=== PATIENT | male | born 1980 | race Caucasian/White ===

== ENCOUNTER 2016-06-14 09:27 | Emergency (ER) | payer SELFPAY ==
[2016-06-14 09:37] VITALS: BMI 23.8
[2016-06-14 10:05] LABS: LEUKOCYTES/URINE NEG (NEGATIVE); NITRITE/URINE NEG (NEGATIVE); RBC/URINE 0-2 (0-2); URINE OCCULT BLOOD NEG (NEG/TRACE); WBC/URINE 0-2 (0-2)
[2016-06-14] MEDS ORDERED: SODIUM CHLORIDE 0.9% 3 ML FLUSH FLUSH PRN (10:10)
[2016-06-14 10:11] VITALS: TEMP 98.4
[2016-06-14] MEDS ORDERED: ONDANSETRON HCL 4 MG/2 ML VIAL IV ONE (10:13)
[2016-06-14] MEDS ORDERED: HYDROmorphone 1 MG INJECTION IV ONE ×2 (10:13→11:32)
--- NOTE | 2016-06-14 10:17 | EDPRACDOC ---
- General Information Chief Complaint: Abdominal Pain Stated Complaint: ABD PAIN/ VOMITING Time Seen by Provider: 06/14/16 09:43 Information Source: Family Mode Of Arrival: Car Home Medications: Home Medications Atorvastatin Calcium [Lipitor] 10 mg PO HS 07/11/14 Levofloxacin [Levaquin] 750 mg PO DAILY #10 tab 06/14/16 Metronidazole [Flagyl] 500 mg PO BID #28 tab 06/14/16 Oxycodone HCl/Acetaminophen [Percocet 5-325 mg Tablet] 1 - 2 each PO Q4-6H #20 tablet 06/14/16 Promethazine [Phenergan] 25 mg PO Q8H PRN 06/14/16 Promethazine [Phenergan] 25 mg PO Q8H PRN #20 tab 06/14/16 Ranitidine HCl [Acid Manager Motor] 75 mg PO DAILY 06/14/16 Allergies/Adverse Reactions: Allergies Allergy/AdvReac Type Severity Reaction Status Date / Time hydrocodone Allergy Itching Verified 06/14/16 09:35 - History of Present Illness Onset: 4 days HPI: PT STATES HAS BEEN HAVING RLQ ABD PAIN FOR SEVERAL DAYS THEN WENT AWAY FOR APPROX 1 DAY THEN CAME BACK AND IS NOW DIFFUSE PAIN AND IS WORSE. PT STATES ABD FEELS TIGHT. NO N/V/D OR HEMATURIA AT THIS TIME. Pain Location: Reports: Diffuse Pain Context: Reports: Spontaneous Pain Severity: Severe Pain Quality: Reports: Aching, Cramping, Sharp Pain Radiation: Reports: Other (PELVIS) Modifying Factors: improves with: Position, Movement Oral Intake: Decreased Urinary Output: Normal ED Past Medical History - History Reviewed Yes Nurses notes reviewed and agree except as marked Travel Outside of [place] in the Last 3 Months?: No - Patient Medical History Cardiac History: Reports: Hypercholesterolemia GI/ History: Reports: Gastroesophageal Reflux Psychological History: Denies: Depression - Social Medical History Smoking Status: Heavy tobacco smoker (5 or more cigarettes/day or daily pipe/ cigar) ETOH: None Substance Abuse: None Lives With: Spouse Lives In: Home EDM Review of Systems - Review of Systems ROS Negative Except as Marked: Yes All systems reviewed and were negative except as marked Constitutional: No Symptoms Reported. negative: Fever, Chills, Weakness, Fatigue, Loss of Appetite Eyes: No Symptoms Reported. negative: Redness, Blurred Vision, Double Vision, Discharge, Pain, Light Sensitive, Photophobia Ears: No Symptoms Reported. negative: Pain, Hearing Loss, Drainage, Ear Pulling Throat: No Symptoms Reported. negative: Pain, Swelling Nose: No Symptoms Reported. negative: Congestion, Bleeding, Discharge, Injection, Swelling, Deformity, Ecchymosis, Tender, Abrasion, Laceration Mouth: No Symptoms Reported. negative: Pain, Drooling Respiratory: No Symptoms Reported. negative: Cough, Brassy Cough, Barky Cough, Shortness of Breath, Wheezing, Hemoptysis Cardiovascular: No Symptoms Reported. negative: Chest Pain, Palpitations, Syncope, Edema, Orthopnea, PND, Skin Mottling, Cyanosis Gastrointestinal: Pain (DIFFUSE). negative: Constipation, Diarrhea, Formula Intolerance, Melena, Nausea, Vomiting Genitourinary: No Symptoms Reported. negative: Dysuria, Hematuria, Frequency, Discharge, Bleeding, Testicular Pain, Neurological: No Symptoms Reported. negative: Headache, Dizziness, Seizure, Numbness, Weakness, Speech Difficulty, Gait Difficulty Musculoskeletal: No Symptoms Reported. negative: Neck, Chestwall, Ribs, Back, Shoulder, Arm, Elbow, Forearm, Wrist, Hand, Pelvis, Hip, Femur, Knee, Leg, Ankle , Foot Integumentary: No Symptoms Reported. negative: Itching, Rash, Bruising, Wound Allergic/Immunologic: No Symptoms Reported. negative: Hives, Itching Hematologic: No Symptoms Reported. negative: Lymphadenopathy, Easy Bruising, Easy Bleeding Endocrine: No Symptoms Reported. negative: Weight Gain, Weight Loss Psychiatric: No Symptoms Reported. negative: Anxiety, Depression, Hallucinations, Insomnia, Suicidal - Physical Exam Constitutional: Alert (Awake), No apparent distress Oriented to: Time, Person, Place Last recorded Vital Signs: Last Vital Signs Temp 98.4 F 06/14/16 10:11 Pulse 97 06/14/16 10:45 Resp 18 06/14/16 10:45 BP 137/75 06/14/16 10:45 Pulse Ox 94 06/14/16 10:45 Oxygen Pulse Oxygen Saturation 94 O2 Device Room Air Oxygen Flow Rate Fraction of Inspired Oxygen ( FIO2) - HEENT Head: Normal ( normocephalic) Eye Exam: Normal (PERRL, EOMI, Sclera white) Oropharynx: Normal (Pharynx:Moist without exudate,Gums-no swelling) Tympanic Membrane: Normal ENT EAC: Normal TMJ: Normal Nose: No Symptoms Reported (septum midline) Neck: Normal (FROM, trachea at midline) - Respiratory/Cardiovascular Respiratory: Normal - CTA (BBS clear to auscultation without adventitious sounds ) Cardiovascular: Normal (RRR without murmur, gallop or rub) - GI Auscultation: Increased Palpation: Tense Tenderness: Diffuse, Moderate, Rebound Galindo's Sign: Negative - Bladder: Normal - Musculoskeletal Back: Normal (Non-Tender) Extremities: Normal (Normal tone, Pulses 2+ No cyanosis or edema, FROM) - Integumentary Skin: Normal, Warm, Dry Lymphatics: Normal (no adenopathy) - Neurologic Memory Impaired: Normal Motor Function: Normal (Normal tone, Pulses 2+ No cyanosis or edema, FROM) Cranial Nerve: Normal (CN II-X11 intact sensation, strength 5/5) Cerebellar: Normal Mood Description: Normal Perception: Normal - Differential Diagnosis Appendicitis (WITH PERFORATION), Constipation, Diverticulitis, Pancreatitis, Urolithiasis - Results All Results Reviewed and Normal except as Highlighted below: Yes 06/14/16 10:22 06/14/16 10:22 WBC 13.0 xk/uL (3.8-10.8) H 06/14/16 10:22 RBC 4.72 xM/uL (4.70-6.10) 06/14/16 10:22 Hgb 15.4 g/dL (14.0-18.0) 06/14/16 10:22 Hct 45.4 % (42-52) 06/14/16 10:22 MCV 96 fL (80-94) H 06/14/16 10:22 MCH 32.6 pg (27-32) H 06/14/16 10:22 MCHC 33.9 g/dl (33-36) 06/14/16 10:22 RDW 13.6 % (11.5-14.5) 06/14/16 10:22 Plt Count 260 xk/uL (130-400) 06/14/16 10:22 MPV 8.3 fL (7.4-10.4) 06/14/16 10:22 Neut % (Auto) 87.3 % (45-76) H 06/14/16 10:22 Lymph % (Auto) 4.7 % (17-44) L 06/14/16 10:22 White % (Auto) 5.6 % (3-10) 06/14/16 10:22 Eos % (Auto) 2.0 % (0-5) 06/14/16 10:22 Baso % (Auto) 0.4 % (0-2) 06/14/16 10:22 Absolute Neuts (auto) 11.31 xk/uL (1.7-8.2) H 06/14/16 10:22 Absolute Lymphs (auto) 0.52 xk/uL (0.65-4.75) L 06/14/16 10:22 Sodium 140 mEq/L (137-146) 06/14/16 10:22 Potassium 3.9 mEq/L (3.5-5.1) 06/14/16 10:22 Chloride 105 mEq/L (98-107) 06/14/16 10:22 Carbon Dioxide 26 mMOL/L (22-33) 06/14/16 10:22 Anion Gap 13 mEq/L (8-16) 06/14/16 10:22 BUN 16 MG/DL (9-20) 06/14/16 10:22 Creatinine 0.70 MG/DL (0.66-1.25) 06/14/16 10:22 Estimated GFR (MDRD) > 60 mL/min (>=60) 06/14/16 10:22 Glucose 100 mg/dL (70-99) H 06/14/16 10:22 Calculated Osmolality 270 MOs/Kg (270-290) 06/14/16 10:22 Lactic Acid 1.7 mEq/L (0.7-2.1) 06/14/16 10:22 Calcium 9.0 MG/DL (8.4-10.2) 06/14/16 10:22 Corrected Calcium 9.2 MG/DL (8.4-10.2) 06/14/16 10:22 Total Bilirubin 0.4 MG/DL (0.2-1.3) 06/14/16 10:22 AST 20 IU/L (17-59) 06/14/16 10:22 ALT 27 IU/L (21-72) 06/14/16 10:22 Alkaline Phosphatase 68 IU/L (38-126) 06/14/16 10:22 Total Protein 6.2 G/DL (6.3-8.2) L 06/14/16 10:22 Albumin 3.8 G/DL (3.5-5.0) 06/14/16 10:22 Lipase 43 U/L (23-300) 06/14/16 10:22 Urine Color Dark yellow 06/14/16 09:40 Urine Clarity Clear 06/14/16 09:40 Urine pH 5.0 (5.0-8.0) 06/14/16 09:40 Ur Specific [place] 1.020 (1.003-1.035) 06/14/16 09:40 Urine Protein Neg (NEG/TRACE) 06/14/16 09:40 Urine Glucose (UA) Neg (NEGATIVE) 06/14/16 09:40 Urine Ketones Neg (NEGATIVE) 06/14/16 09:40 Urine Occult Blood Neg (NEG/TRACE) 06/14/16 09:40 Urine Nitrite Neg (NEGATIVE) 06/14/16 09:40 Urine Bilirubin Neg (NEGATIVE) 06/14/16 09:40 Urine Urobilinogen <2.0 MG/DL (0-1) 06/14/16 09:40 Ur Leukocyte Esterase Neg (NEGATIVE) 06/14/16 09:40 Urine RBC 0-2 (0-2) 06/14/16 09:40 Urine WBC 0-2 (0-2) 06/14/16 09:40 Urine Mucus Sm amt (NEG/OCC) 06/14/16 09:40 Lab Results 06/14/16 06/14/16 06/14/16 10:22 10:22 10:22 WBC 13.0 H RBC 4.72 Hgb 15.4 Hct 45.4 MCV 96 H MCH 32.6 H MCHC 33.9 RDW 13.6 Plt Count 260 MPV 8.3 Neut % (Auto) 87.3 H Lymph % (Auto) 4.7 L White % (Auto) 5.6 Eos % (Auto) 2.0 Baso % (Auto) 0.4 Absolute Neuts (auto) 11.31 H Absolute Lymphs (auto) 0.52 L Sodium Potassium Chloride Carbon Dioxide Anion Gap BUN Creatinine Estimated GFR (MDRD) Glucose Calculated Osmolality Lactic Acid 1.7 Calcium Corrected Calcium Total Bilirubin AST ALT Alkaline Phosphatase Total Protein Albumin Lipase 43 Urine Color Urine Clarity Urine pH Ur Specific [place] Urine Protein Urine Glucose (UA) Urine Ketones Urine Occult Blood Urine Nitrite Urine Bilirubin Urine Urobilinogen Ur Leukocyte Esterase Urine RBC Urine WBC Urine Mucus 06/14/16 06/14/16 10:22 09:40 WBC RBC Hgb Hct MCV MCH MCHC RDW Plt Count MPV Neut % (Auto) Lymph % (Auto) White % (Auto) Eos % (Auto) Baso % (Auto) Absolute Neuts (auto) Absolute Lymphs (auto) Sodium 140 Potassium 3.9 Chloride 105 Carbon Dioxide 26 Anion Gap 13 BUN 16 Creatinine 0.70 Estimated GFR (MDRD) > 60 Glucose 100 H Calculated Osmolality 270 Lactic Acid Calcium 9.0 Corrected Calcium 9.2 Total Bilirubin 0.4 AST 20 ALT 27 Alkaline Phosphatase 68 Total Protein 6.2 L Albumin 3.8 Lipase Urine Color Dark yellow Urine Clarity Clear Urine pH 5.0 Ur Specific [place] 1.020 Urine Protein Neg Urine Glucose (UA) Neg Urine Ketones Neg Urine Occult Blood Neg Urine Nitrite Neg Urine Bilirubin Neg Urine Urobilinogen <2.0 Ur Leukocyte Esterase Neg Urine RBC 0-2 Urine WBC 0-2 Urine Mucus Sm amt - Diagnostic Imaging CT ABD/PEL Image interpreted by: Radiologist 06/14/16 11:24 IMPRESSION: 1. There is small pelvic ascites. Few diverticula are noted in mid sigmoid colon. Axial image 64 there is abnormal segmental thickening of sigmoid colon wall. Axial image 65 there is stranding of pericolonic fat in sigmoid colon. In axial image 64 there is tiny air bubble just posterior to sigmoid colon. This is highly suspicious for acute diverticulitis and subtle contained perforation. Mild segmental colitis cannot be excluded. Clinical correlation is necessary. 2. No mesenteric or diverticular abscess is noted 3. Normal appendix. No pericecal inflammation. 4. No hydronephrosis or hydroureter. 5. No small bowel obstruction. - Additional Information PT STATES THAT HE CHANGED HIS MIND AND DOES NOT WANT TO BE ADMITTED TO THE HOSPITAL DUE TO FINANCIAL REASONS. STATES IF HE GETS WORSE HE WILL COME BACK BUT WOULD RATHER TRY ABX AT HOME FIRST. Decision Time to Discharge: 11:42 - Departure Disposition: Home Condition: Stable Final Diagnosis: Acute diverticulitis Instructions: Diverticulitis (ED) Education/Counseling Given To: Patient, Family Member Education/Counseling Given Regarding: Diagnosis, Treatment, Prognosis, Follow Up Referrals: None,No Provider [Primary Care Provider] - One Week Prescriptions: New Levofloxacin [Levaquin] 750 mg PO DAILY #10 tab Metronidazole [Flagyl] 500 mg PO BID #28 tab Oxycodone HCl/Acetaminophen [Percocet 5-325 mg Tablet] 1 - 2 each PO Q4-6H # 20 tablet Promethazine [Phenergan] 25 mg PO Q8H PRN #20 tab PRN Reason: Nausea/Vomiting No Action Atorvastatin Calcium [Lipitor] 10 mg PO HS Promethazine [Phenergan] 25 mg PO Q8H PRN PRN Reason: Nausea/Vomiting Ranitidine HCl [Acid Manager Motor] 75 mg PO DAILY Additional Instructions: RETURN FOR WORSE OR DIFFERENT SYMPTOMS.
[2016-06-14] MEDS: NS 1,000 ML IV SCH ×5 (10:31→12:53)
[2016-06-14 10:42] LABS: AUTOMATED BASOPHIL 0.4 % (0-2); AUTOMATED LYMPH 4.7 % (17-44); AUTOMATED MONOCYTE 5.6 % (3-10); AUTOMATED NEUTROPHIL 87.3 % (45-76); MPV 8.3 fL (7.4-10.4)
[2016-06-14 10:59] LABS: BLOOD UREA NITROGEN 16 MG/DL (9-20); CALC CORRECTED 9.2 MG/DL (8.4-10.2); CALCULATED OSMOLALITY 270 MOs/Kg (270-290); CHLORIDE 105 mEq/L (98-107); GLUCOSE 100 mg/dL (70-99); SODIUM LEVEL 140 mEq/L (137-146); TOTAL PROTEIN 6.2 G/DL (6.3-8.2)
[2016-06-14] MEDS ORDERED: Pharmacy Review for Metformin - IV Contrast Given SCH (11:00)
--- NOTE | 2016-06-14 11:22 | DIRPT ---
CLINICAL DATA: Diffuse abdominal pain for 5 days, nausea EXAM: CT ABDOMEN AND PELVIS WITH CONTRAST TECHNIQUE: Multidetector CT imaging of the abdomen and pelvis was performed using the standard protocol following bolus administration of intravenous contrast. CONTRAST: 80 cc Isovue 370 COMPARISON: 08/03/2006 FINDINGS: The lung bases are unremarkable. Mild degenerative changes lumbar spine. There is disc space flattening with mild posterior disc bulge mild anterior and mild posterior spurring at L5-S1 level. Limbus vertebra noted upper endplate of L4. There is low density probable hemangioma in right hepatic lobe posteriorly measures 9 mm. No calcified gallstones are noted within gallbladder. Atherosclerotic calcifications of abdominal aorta without evidence of aortic aneurysm. The enhanced pancreas, spleen and adrenal glands are unremarkable. Enhanced kidneys are symmetrical in size. There is no small bowel obstruction. No free abdominal air. Few diverticula are noted right colon. Normal appendix is partially visualized in axial image 61. The terminal ileum is unremarkable. Small amount of pelvic ascites. Few diverticula are noted in mid sigmoid colon. Axial image 64 there is abnormal segmental thickening of sigmoid colon wall. Axial image 65 there is stranding of pericolonic fat in sigmoid colon. In axial image 64 there is tiny air bubble just posterior to sigmoid colon. This is highly suspicious for acute diverticulitis and subtle contained perforation. Clinical correlation is necessary. Moderate stool and gas noted in distal sigmoid colon. No distal colonic obstruction. Prostate gland and seminal vesicles are unremarkable. Small amount of free fluid noted in left anterior pelvis. No mesenteric or diverticular abscess. Kidneys are symmetrical in size and enhancement. No hydronephrosis or hydroureter. IMPRESSION: 1. There is small pelvic ascites. Few diverticula are noted in mid sigmoid colon. Axial image 64 there is abnormal segmental thickening of sigmoid colon wall. Axial image 65 there is stranding of pericolonic fat in sigmoid colon. In axial image 64 there is tiny air bubble just posterior to sigmoid colon. This is highly suspicious for acute diverticulitis and subtle contained perforation. Mild segmental colitis cannot be excluded. Clinical correlation is necessary. 2. No mesenteric or diverticular abscess is noted 3. Normal appendix. No pericecal inflammation. 4. No hydronephrosis or hydroureter. 5. No small bowel obstruction. These results were called by telephone at the time of interpretation on 06/14/2016 at 11:[address] Plummer, who verbally acknowledged these results. Electronically Signed By: Zeyad Llanos M.D. On: 06/14/2016 11:19
[2016-06-14] MEDS ORDERED: Metronidazole 500 mg/100 ml 500 MG/100 ML RTU IV ONE (11:32)
[2016-06-14] MEDS ORDERED: Levofloxacin 750 mg/150 ml D5W 750 MG/150 ML RTU IV ONE (11:32)
[2016-06-14] MEDS ORDERED: METRONIDAZOLE 500 MG TAB PO ONE (11:42)
[2016-06-14] MEDS ORDERED: LEVOFLOXACIN 750 MG TAB PO ONE (11:42)
[2016-06-14 12:01] VITALS: BP 124/74; PULSE 94
[2016-06-14] MEDS ORDERED: SODIUM CHLORIDE 0.9% 3 ML FLUSH FLUSH SCH (18:00)
== END 2016-06-14 12:10 | disposition home or self-care (01) ==
LOC: ED 09:27
DX: K57.92 Diverticulitis of intestine, part unspecified, without perforation or abscess without bleeding (principal)
CPT/HCPCS: 36415; 74177; 80053; 81001; 83605; 83690; 85025; 87040; 87086; 96361; 96374; 96375; 96376; 99284; A9698; J1170; J2405; J3490

== ENCOUNTER 2016-06-15 20:36 | Inpatient (IN) | payer SELFPAY ==
[2016-06-15] MEDS ORDERED: MORPHINE 4 MG/ML INJECTION IV ONE (21:22)
[2016-06-15] MEDS ORDERED: NS 1,000 ML IV ONE ×2 (21:22)
[2016-06-15] MEDS ORDERED: ONDANSETRON HCL 4 MG/2 ML VIAL IV ONE (21:22)
--- NOTE | 2016-06-15 21:29 | EDPRACDOC ---
- General Information Chief Complaint: Abdominal Pain Stated Complaint: ABD PAIN FEVER Time Seen by Provider: 06/15/16 21:19 Mode Of Arrival: Car Home Medications: Home Medications Atorvastatin Calcium [Lipitor] 10 mg PO HS 07/11/14 Levofloxacin [Levaquin] 750 mg PO DAILY #10 tab 06/14/16 Metronidazole [Flagyl] 500 mg PO BID #28 tab 06/14/16 Oxycodone HCl/Acetaminophen [Percocet 5-325 mg Tablet] 1 - 2 each PO Q4-6H #20 tablet 06/14/16 Promethazine [Phenergan] 25 mg PO Q8H PRN 06/14/16 Promethazine [Phenergan] 25 mg PO Q8H PRN #20 tab 06/14/16 Ranitidine HCl [Acid Slurry Man] 75 mg PO DAILY 06/14/16 Allergies/Adverse Reactions: Allergies Allergy/AdvReac Type Severity Reaction Status Date / Time hydrocodone Allergy Itching Verified 06/15/16 21:08 - History of Present Illness Onset: [employer] HPI: SEVERAL DAYS GEN / LOWER QUAD ABD PAIN. ANOREXIA, NAUSEA WITHOUT VOMITING. LITTLE UOP. SEEN THIS ED YESTERDAY FOR SAME, CT A/P DIVERTIC WITH CONTAINED PERF AND FREE FLUID. PT TAKING MEDS AT HOME. NOW FEELING WORSE (GENERALLY) AND DEVELOPED FEVER , BACK TO ED. ED Past Medical History - History Reviewed Yes Nurses notes reviewed and agree except as marked No Past Medical History: Yes Patient has no past medical history - Patient Medical History Cardiac History: Reports: Hypercholesterolemia GI/ History: Reports: Gastroesophageal Reflux Psychological History: Denies: Depression Surgical History: Reports: No Significant History - Social Medical History Smoking Status: Heavy tobacco smoker (5 or more cigarettes/day or daily pipe/ cigar) ETOH: None Substance Abuse: None Lives In: Home EDM Review of Systems - Review of Systems ROS Negative Except as Marked: Yes All systems reviewed and were negative except as marked - Physical Exam Constitutional: Alert, Distress. negative: Well nourished, Well appearing Oriented to: Time, Person, Place Last recorded Vital Signs: Last Vital Signs Temp 101.5 F H 06/15/16 21:04 Pulse 120 H 06/15/16 21:04 Resp 20 06/15/16 21:04 BP 152/71 06/15/16 21:04 Pulse Ox 94 06/15/16 21:04 Oxygen Pulse Oxygen Saturation 94 O2 Device Room Air Oxygen Flow Rate Fraction of Inspired Oxygen ( FIO2) - HEENT Head: Normal Eye Exam: negative: Pale Conjunctiva, Scleral Icterus Oropharynx: Membranes Dry Neck: Normal - Respiratory/Cardiovascular Respiratory: Normal - CTA Cardiovascular: Normal - GI Tenderness: Diffuse, Moderate. negative: Guarding, Rebound, Rigidity Galindo's Sign: Negative - Musculoskeletal Back: Normal Extremities: Normal - Integumentary Skin: Normal, Hot, Dry - Neurologic Memory Impaired: Normal Mood Description: Anxious, Appropriate Thought: Coherent Perception: Normal - Diagnostic Imaging Abdomen Image interpreted by: Radiologist 06/15/16 21:27 Patient Name: FABRICE SCHMITT LOC: ED : 1980 AGE: 36 Order Date:06/14/16 Date of Service:07/26 Report # [id number] Ord Physician: Aubrie Sy Exam # [id number] Emergency Physician: Nicolas Plummer DO Exam(s): [id number] CT/CT ABD-PELV W/IV CM CLINICAL DATA: Diffuse abdominal pain for 5 days, nausea EXAM: CT ABDOMEN AND PELVIS WITH CONTRAST TECHNIQUE: Multidetector CT imaging of the abdomen and pelvis was performed using the standard protocol following bolus administration of intravenous contrast. CONTRAST: 80 cc Isovue 370 COMPARISON: 08/03/2006 FINDINGS: The lung bases are unremarkable. Mild degenerative changes lumbar spine. There is disc space flattening with mild posterior disc bulge mild anterior and mild posterior spurring at L5-S1 level. Limbus vertebra noted upper endplate of L4. There is low density probable hemangioma in right hepatic lobe posteriorly measures 9 mm. No calcified gallstones are noted within gallbladder. Atherosclerotic calcifications of abdominal aorta without evidence of aortic aneurysm. The enhanced pancreas, spleen and adrenal glands are unremarkable. Enhanced kidneys are symmetrical in size. There is no small bowel obstruction. No free abdominal air. Few diverticula are noted right colon. Normal appendix is partially visualized in axial image 61. The terminal ileum is unremarkable. Small amount of pelvic ascites. Few diverticula are noted in mid sigmoid colon. Axial image 64 there is abnormal segmental thickening of sigmoid colon wall. Axial image 65 there is stranding of pericolonic fat in sigmoid colon. In axial image 64 there is tiny air bubble just posterior to sigmoid colon. This is highly suspicious for acute diverticulitis and subtle contained perforation. Clinical correlation is necessary. Moderate stool and gas noted in distal sigmoid colon. No distal colonic obstruction. Prostate gland and seminal vesicles are unremarkable. Small amount of free fluid noted in left anterior pelvis. No mesenteric or diverticular abscess. Kidneys are symmetrical in size and enhancement. No hydronephrosis or hydroureter. IMPRESSION: 1. There is small pelvic ascites. Few diverticula are noted in mid sigmoid colon. Axial image 64 there is abnormal segmental thickening of sigmoid colon wall. Axial image 65 there is stranding of pericolonic fat in sigmoid colon. In axial image 64 there is tiny air bubble just posterior to sigmoid colon. This is highly suspicious for acute diverticulitis and subtle contained perforation. Mild segmental colitis cannot be excluded. Clinical correlation is necessary. 2. No mesenteric or diverticular abscess is noted 3. Normal appendix. No pericecal inflammation. 4. No hydronephrosis or hydroureter. 5. No small bowel obstruction. These results were called by telephone at the time of interpretation on 06/14/2016 at 11:[address] Plummer, who verbally acknowledged these results. Electronically Signed By: Zeyad Llanos M.D. On: 06/14/2016 11:19 Electronically Signed By: Zeyad Llanos MD Electronically Signed Date/Time: Dictate Date/Time: 06/14/16 1103 Technologist: Cait Christianson Transcribed By: Leanna Transcribed Date/Time: 06/14/16 1119 - Departure Disposition: Admit IP To This Hospital Condition: Stable Final Diagnosis: Diverticulitis of colon with perforation Education/Counseling Given To: Patient, Family Member Education/Counseling Given Regarding: Diagnosis, Treatment, Prognosis Referrals: Abebe Castillo Jr, DO [Primary Care Provider] - As Needed Prescriptions: No Action Atorvastatin Calcium [Lipitor] 10 mg PO HS Promethazine [Phenergan] 25 mg PO Q8H PRN PRN Reason: Nausea/Vomiting Ranitidine HCl [Acid Slurry Man] 75 mg PO DAILY Levofloxacin [Levaquin] 750 mg PO DAILY #10 tab Metronidazole [Flagyl] 500 mg PO BID #28 tab Oxycodone HCl/Acetaminophen [Percocet 5-325 mg Tablet] 1 - 2 each PO Q4-6H # 20 tablet Promethazine [Phenergan] 25 mg PO Q8H PRN #20 tab PRN Reason: Nausea/Vomiting Decision to Admit Time: 21:30 Decision to admit date: 06/15/16 Decision to admit: from ED - Physician Consulted Surgery Time Called: 21:30 Provider Called: Alex Palmer Time Home Housekeeper Returned Call: 21:30
--- NOTE | 2016-06-15 21:42 | HISTPHYS ---
- Chief Complaint lower abdominal pain - History of Present Illness This is a 36 year old male that presented to the emergency department on 06/14/16 with lower abdominal pain. He was sent home with oral antibiotics. He returned to the emergency department today with worsening abdominal pain, fevers and chills. He denies previous occurrences of abdominal pain. - Medical History Cardiac History: Reports: No Significant History, Hypercholesterolemia Respiratory History: Reports: No Significant History GI/ History: Reports: No Significant History, Gastroesophageal Reflux Musculoskeletal History: Reports: No Significant History Systemic History: Reports: No Significant History Neurological History: Reports: No Significant History Psychological History: Reports: No Significant History. Denies: Depression psoriasis - Surgical History Reports: No Significant History - Medictions/Allergies Allergies hydrocodone Allergy (Verified 06/15/16 21:08) Itching Current Medication List: Reviewed Home Medications Atorvastatin Calcium [Lipitor] 10 mg PO HS 07/11/14 Levofloxacin [Levaquin] 750 mg PO DAILY #10 tab 06/14/16 Metronidazole [Flagyl] 500 mg PO BID #28 tab 06/14/16 Oxycodone HCl/Acetaminophen [Percocet 5-325 mg Tablet] 1 - 2 each PO Q4-6H #20 tablet 06/14/16 Promethazine [Phenergan] 25 mg PO Q8H PRN 06/14/16 Promethazine [Phenergan] 25 mg PO Q8H PRN #20 tab 06/14/16 Ranitidine HCl [Acid Strategic [employer] Leader] 75 mg PO DAILY 06/14/16 - Family History Reports: No Significant History - Social History Travel Outside of [place] in the Last 3 Months?: No Lives: with Significant Other Smoking Status: Heavy tobacco smoker (5 or more cigarettes/day or daily pipe/ cigar) Social History: Denies: Amphetamine Use, Alcohol Use, Barbiturate Use, Benzodiazipine Use, Cocaine Use, Heroin Use, Marijuana Use, Methadone Use, MDMA (Ecstasy) Use, Substance Use Disorder - Review of Systems Yes All systems reviewed and were negative except as marked (twelve systems reviewed) - Physical Exam Vital Signs: Initial Vitals Temperature 101.5 F H 06/15/16 21:04 Pulse Rate 120 H 06/15/16 21:04 Respiratory Rate 20 06/15/16 21:04 Blood Pressure 152/71 06/15/16 21:04 Pulse Oxygen Saturation 94 06/15/16 21:04 Constitutional: No apparent distress, Alert Oriented to: Time, Person, Place - HEENT Head: Normal Eye: Normal Oropharynx: Normal ENT EAC: Normal TMJ: Normal Nose: No Symptoms Reported Respiratory: Normal - CTA Cardiovascular: Normal - GI Auscultation: Decreased Palpation: negative: Enlarged liver, Enlarged spleen Tenderness: Severe, Guarding, RLQ, LLQ Rectal Exam: Deferred - Exam Deferred: Yes - Musculoskeletal Extremities: negative: Edema Spine: non-tender - Integumentary Skin: Diaphoretic Lymphatics: Normal - Neurologic Memory Impaired: Normal Motor Function: Normal (Motor 5/5 throughout.Normal tone, Pulses 2+ No cyanosis or edema, FROM) Cranial Nerve: Normal (CN II-XII intact sensation, strength 5/5) Cerebellar: Normal (Babinski: toes downgoing bilaterally. Intact Finger to nose. Sensory grossly intact to light touch. Intact rapid alternating movements bilaterally. No pronator drift.) Mood Description: Normal (Fully oriented. Normal and appropriate affect.) Perception: Normal (Normal and appropriate affect.) - Assessment/Plan (1) Diverticulitis of colon with perforation K57.20 - DVTRCLI OF LG INT W PERFORATION AND ABSCESS W/O BLEEDING Acute Present on Admission: Yes Comment: We will obtain a stat abdominal x ray to evaluate for pneumoperitoneum. If there is pneumoperitoneum, we will plan for operative intervention. If there is no evidence of pneumoperitoneum, we will plan for admission, broad spectrum intravenous antibiotics and close monitoring. Case Care Discussed with: Patient, Family
[2016-06-15 21:52] LABS: AUTOMATED BASOPHIL 0.7 % (0-2); AUTOMATED EOSINOPHIL 0.1 % (0-5); AUTOMATED LYMPH 1.8 % (17-44); AUTOMATED MONOCYTE 9.3 % (3-10); AUTOMATED NEUTROPHIL 88.1 % (45-76); MPV 8.5 fL (7.4-10.4)
[2016-06-15 22:01] LABS: BLOOD UREA NITROGEN 11 MG/DL (9-20); CALC CORRECTED 9.2 MG/DL (8.4-10.2); CALCIUM 8.7 MG/DL (8.4-10.2); CALCULATED OSMOLALITY 259 MOs/Kg (270-290); CHLORIDE 100 mEq/L (98-107); GLUCOSE 138 mg/dL (70-99); SODIUM LEVEL 134 mEq/L (137-146); TOTAL PROTEIN 6.5 G/DL (6.3-8.2)
[2016-06-15] MEDS ORDERED: Albuterol/Ipratropium Neb 3 ML NEB NEB PRN (22:03)
[2016-06-15] MEDS ORDERED: Aluminum;Magnesium;Simethicone 30 ML UDC PO PRN (22:03)
[2016-06-15] MEDS ORDERED: DIPHENHYDRAMINE 25 MG CAP PO PRN (22:03)
[2016-06-15] MEDS ORDERED: PROMETHAZINE 25 MG/ML VIAL IV PRN (22:03)
[2016-06-15] MEDS ORDERED: ACETAMINOPHEN 650 MG SUPP PR PRN (22:03)
[2016-06-15] MEDS ORDERED: SIMETHICONE 80 MG TAB PO PRN (22:03)
[2016-06-15 22:04] LABS: LEUKOCYTES/URINE NEG (NEGATIVE); NITRITE/URINE NEG (NEGATIVE); URINE OCCULT BLOOD NEG (NEG/TRACE); WBC/URINE 0-2 (0-2)
--- NOTE | 2016-06-15 22:33 | DIRPT ---
CLINICAL DATA: Shortness of breath. EXAM: DG ABDOMEN ACUTE W/ 1V CHEST COMPARISON: Abdominal CT from yesterday FINDINGS: Normal heart size and mediastinal contours. No acute infiltrate or edema. No effusion or pneumothorax. No acute osseous findings. Recent diagnosis of diverticulitis with no evidence of interval rupture/pneumoperitoneum. There are few loops of mildly distended small bowel in the lower abdomen with fluid levels, likely reactive to the pelvic inflammation. No obstructive changes or significant, generalized ileus. No concerning intra-abdominal mass effect. IMPRESSION: 1. No evidence of pneumoperitoneum related to patient's diverticulitis. 2. No evidence of acute cardiopulmonary disease. Electronically Signed By: Bobby Lewis M.D. On: 06/15/2016 22:31
[2016-06-15] MEDS ORDERED: Vaccine Screening Complete SCH (23:00)
[2016-06-15] MEDS: HYDROmorphone 50 ML IV PRN (23:59)
[2016-06-15] MEDS: LR 1,000 ML IV SCH (23:59)
[2016-06-16] MEDS ORDERED: NS 500 ML IV ONE (00:18)
[2016-06-16] MEDS: ERTAPENEM 1 GM in NS 100 ML IV SCH ×2 (00:20→22:32)
[2016-06-16] MEDS: ACETAMINOPHEN 325 MG/TAB TABLET PO PRN ×2 (00:27→06:10)
[2016-06-16 07:14] LABS: AUTOMATED BASOPHIL 0.4 % (0-2); AUTOMATED EOSINOPHIL 0.2 % (0-5); AUTOMATED LYMPH 4.9 % (17-44); AUTOMATED MONOCYTE 10.9 % (3-10); AUTOMATED NEUTROPHIL 83.6 % (45-76); MPV 8.2 fL (7.4-10.4)
[2016-06-16] MEDS: LR 1,000 ML IV SCH ×3 (08:19→22:30)
[2016-06-16] MEDS: IBUPROFEN 600 MG TAB PO PRN (10:16)
--- NOTE | 2016-06-16 12:18 | PCM.SURGRO ---
- Subjective Chief Complaint: [facility] Day #: 2 (acute sigmoid diverticulitis) Patient: Reports: Feels better, Pain is less (The patient reports that he is having much less abdominal pain.), Voiding without difficulty (The patient reports much less abdominal pain prior to urination now compared to yesterday.) , Flatus, No Bowel Movement, Fever (T max 100.5), Ambulating in Room. Denies: Blood in Stool, Nausea, Vomiting, Shortness of breath - Objective / Physical Exam Vital Signs: Temperature: 100.5 F (06/16/16 10:16) HR: 104 (06/16/16 09:19)RR: 18 (06/16/16 10:00) BP: 118/60 (06/16/16 09:19)Pulse Ox: 93 (06/16/16 09:19) General: Alert, Oriented x3, Cooperative, No acute distress HEENT: Normal, Anicteric Sclera, Mucous membr. moist/pink Respiratory: Normal - CTA Cardiovascular: Regular rate and rhythm Gastrointestinal: Soft, Bowel Sounds. negative: Distended, Tender (Currently not tender in the abdomen. No rebound tenderness.), Guarding, Firm, Rigid, Hernia, Hepatosplenomegaly Extremities: negative: Swelling, Edema Psych/Mental Status: Appropriate, Normal Affect, Cooperative. negative: Anxious Neurological: Normal speech Skin: Warm,Dry and Intact, No rashes Lymphatics: Normal - Assessment and Plan (1) Diverticulitis of colon with perforation Acute K57.20 - DVTRCLI OF LG INT W PERFORATION AND ABSCESS W/O BLEEDING Present on Admission: Yes Comment/Plan: The patient appears to be slowly improving with passage of flatus, softer abdomen and improved bowel sounds. The patient continues to have a fever and elevated white blood cell count, so we will obtain a CT scan of the abdomen and pelvis to evaluate for development of a peritoneal abscess. I discussed the treatment plan at length with the patient. All questions were answered. He voiced understanding and agreement. - Review of Systems Yes All systems reviewed and were negative except as marked (twelve systems reviewed with the patient.)
[2016-06-16] MEDS ORDERED: DIATRIZOATE MEGLMINE/SODIUM 30 ML BOTTLE PO ONE (12:19)
[2016-06-16] MEDS ORDERED: Pharmacy Review for Metformin - IV Contrast Given SCH ×2 (13:00)
[2016-06-16] MEDS: ONDANSETRON HCL 4 MG/2 ML VIAL IV PRN (19:56)
[2016-06-16] MEDS ORDERED: TEMAZEPAM 15 MG CAP PO PRN (22:26)
[2016-06-17] MEDS: HYDROmorphone 50 ML IV PRN (01:03)
[2016-06-17] MEDS ORDERED: DIATRIZOATE MEGLMINE/SODIUM 30 ML BOTTLE PO ONE (05:00)
--- NOTE | 2016-06-17 08:08 | DIRPT ---
CLINICAL DATA: 36-year-old male with lower abdominal pain. Diverticulitis. Subsequent encounter. EXAM: CT ABDOMEN AND PELVIS WITH CONTRAST TECHNIQUE: Multidetector CT imaging of the abdomen and pelvis was performed using the standard protocol following bolus administration of intravenous contrast. CONTRAST: 80 cc Isovue 370. COMPARISON: 06/14/2016 CT. FINDINGS: Diffuse inflammation of the sigmoid colon and stranding of surrounding fat planes has progressed since prior examination. Free fluid in the pelvis has now dispersed in a more diffuse fashion with largest component rectosigmoid region measuring up to 3 cm without well-defined drainable abscess currently detected. No free intraperitoneal air. The tiny amount of extraluminal gas adjacent to sigmoid colon on prior exam is not appreciated on current exam. Findings may reflect changes of diverticulitis although underlying colitis is also consideration. Fluid surrounds portion of the appendix but appears to be arising from the sigmoid colon inflammation rather than primary appendicitis. Mild prominence proximal small bowel loops felt to be reactive in origin rather than primary small bowel abnormality. Gastric wall thickening in a diffuse fashion. Gastritis not excluded. Vicarious excretion of contrast in the gallbladder. Right lobe of liver 9 mm low-density structure of indeterminate etiology and unchanged. No worrisome focal splenic, pancreatic, renal or adrenal abnormality. Atherosclerotic changes of the abdominal aorta and iliac arteries without high-grade stenosis or focal aneurysm. Ectatic splenic artery. No obvious aneurysm. Partially decompressed urinary bladder without gross abnormality. Prostate unremarkable. Scoliosis lumbar spine. Degenerative changes most notable L5-S1. Basilar atelectasis and tiny pleural effusions. IMPRESSION: Progressive inflammation of the sigmoid colon may be related to diverticulitis or colitis. Change in appearance of surrounding inflammation and fluid with largest fluid collection rectosigmoid region measuring up to 3 cm without well-defined drainable abscess. No free intraperitoneal air noted. Fluid surrounding the appendix felt to be related to the sigmoid colon inflammatory process rather primary appendix abnormality. Prominent small bowel loops felt to be reactive in origin rather primary small bowel abnormality. Gastric wall thickening in a diffuse fashion. Underlying gastritis therefore not excluded. Bibasilar subsegmental atelectasis with minimal pleural fluid. Age advanced atherosclerotic type changes. Remainder of findings without change as noted above. Electronically Signed By: Daniel Peña M.D. On: 06/17/2016 08:04
[2016-06-17] MEDS: LR 1,000 ML IV SCH ×2 (08:30→17:30)
--- NOTE | 2016-06-17 09:46 | PCM.SURGRO ---
- Subjective Chief Complaint: wants to go home Hospital Day #: 3 (acute sigmoid diverticulitis) Patient: Reports: Feels better (The patient states that he feels much better with less abdominal pain.), Flatus, Bowel Movement (two), Afebrile (Afebrile this morning.), Ambulating in Room. Denies: Nausea, Vomiting, Shortness of breath - Objective / Physical Exam Vital Signs: Temperature: 99.4 F (06/17/16 06:00) HR: 100 (06/17/16 06:00)RR: 18 (06/17/16 07 :50) BP: 131/78 (06/17/16 06:00)Pulse Ox: 94 (06/17/16 06:00) General: Alert, Oriented x3, Cooperative, No acute distress HEENT: Normal, Mucous membr. moist/pink Respiratory: Normal - CTA Cardiovascular: Regular rate and rhythm Gastrointestinal: Soft, Bowel Sounds (improved bowel sounds today.). negative: Distended, Tender, Guarding, Firm, Rigid, Hernia Extremities: negative: Swelling, Edema Psych/Mental Status: Appropriate, Normal Affect, Cooperative. negative: Agitated, Anxious Neurological: Normal speech Skin: Warm,Dry and Intact, No rashes Lymphatics: Normal - Assessment and Plan (1) Diverticulitis of colon with perforation Acute K57.20 - DVTRCLI OF LG INT W PERFORATION AND ABSCESS W/O BLEEDING Present on Admission: Yes Comment/Plan: The patient is slowly improving. Repeat CT scan was personally reviewed and demonstrates no drainable abscess. There is continued thickening of the sigmoid colon. We will plan for continued intravenous antibiotics and monitor the patient closely. If the patient clinically deteriorates, we will plan for surgical intervention. If he continues to improve, we will advance diet and discharge home with oral antibiotics. I discussed the treatment plan at length with the patient. All questions were answered. (2) Tobacco abuse Chronic Z72.0 - TOBACCO USE Present on Admission: Yes Comment/Plan: This will increase the risk of perioperative complications. - Review of Systems Yes All systems reviewed and were negative except as marked (twelve systems reviewed)
[2016-06-17] MEDS: NICOTINE 7 MG PATCH TOP SCH (12:08)
[2016-06-17] MEDS: ACETAMINOPHEN 325 MG/TAB TABLET PO PRN ×2 (12:12→21:22)
[2016-06-17] MEDS: ONDANSETRON HCL 4 MG/2 ML VIAL IV PRN (13:02)
[2016-06-17 13:52] VITALS: BMI 21.4
[2016-06-17] MEDS: IBUPROFEN 600 MG TAB PO PRN (22:30)
[2016-06-17] MEDS: ERTAPENEM 1 GM in NS 100 ML IV SCH (22:31)
[2016-06-18] MEDS: LR 1,000 ML IV SCH ×2 (01:21→02:47)
[2016-06-18 07:18] LABS: AUTOMATED BASOPHIL 0.6 % (0-2); AUTOMATED EOSINOPHIL 2.9 % (0-5); AUTOMATED LYMPH 5.9 % (17-44); AUTOMATED MONOCYTE 14.5 % (3-10); AUTOMATED NEUTROPHIL 76.1 % (45-76); MPV 8.9 fL (7.4-10.4)
[2016-06-18 07:31] LABS: BLOOD UREA NITROGEN 7 MG/DL (9-20); CALCIUM 8.9 MG/DL (8.4-10.2); CALCULATED OSMOLALITY 266 MOs/Kg (270-290); CHLORIDE 103 mEq/L (98-107); GLUCOSE 89 mg/dL (70-99); SODIUM LEVEL 140 mEq/L (137-146)
[2016-06-18] MEDS: NICOTINE 7 MG PATCH TOP SCH (08:06)
[2016-06-18] MEDS ORDERED: HYDROmorphone 1 MG INJECTION IV PRN (08:48)
--- NOTE | 2016-06-18 09:01 | PCM.SURGRO ---
- Subjective Chief Complaint: wants to go home Hospital Day #: 4 (acute sigmoid diverticulitis) Patient: Reports: Feels better (The patient reports that he feels much better and only has soreness in his lower abdomen with hard coughing.), Voiding without difficulty, Flatus, Bowel Movement (two bowel movements this morning), Afebrile (Afebrile today but had temperature of 101 at one episode over night.) , Ambulating in [place]. Denies: Blood in Stool, Nausea, Vomiting, Shortness of breath - Objective / Physical Exam Vital Signs: Temperature: 97.6 F (06/18/16 05:59) HR: 82 (06/18/16 05:59)RR: 20 (06/18/16 08: 00) BP: 121/77 (06/18/16 05:59)Pulse Ox: 96 (06/18/16 05:59) General: Alert, Oriented x3, Cooperative, No acute distress HEENT: Normal, Anicteric Sclera Respiratory: Normal - CTA Cardiovascular: Regular rate and rhythm Gastrointestinal: Soft, Bowel Sounds. negative: Distended (The patient reports that he feels mildly bloated but currently is not distended.), Tender ( Currently not tender.), Guarding, Firm, Rigid, Hernia, Hepatosplenomegaly Extremities: negative: Swelling, Edema Psych/Mental Status: Appropriate, Normal Affect, Cooperative. negative: Agitated, Anxious Neurological: Normal speech Skin: No rashes Laboratory/Diagnostics Reviewed: 06/18/16 06:50 06/18/16 06:50 - Assessment and Plan (1) Diverticulitis of colon with perforation Acute K57.20 - DVTRCLI OF LG INT W PERFORATION AND ABSCESS W/O BLEEDING Present on Admission: Yes Comment/Plan: We will continue intravenous antibiotics. We will advance to full liquid diet and monitor the patient closely. The patient is slowly improving. (2) Tobacco abuse Chronic Z72.0 - TOBACCO USE Present on Admission: Yes Comment/Plan: This will increase the risk of prolonged healing of the sigmoid diverticulitis. - Review of Systems Yes All systems reviewed and were negative except as marked (twelve systems reviewed with the patient)
[2016-06-18 13:12] VITALS: BP 133/84; PULSE 80; TEMP 98
--- NOTE | 2016-06-18 14:07 | PCM.DCS92 ---
- Final/Secondary Discharge Diagnosis (1) Diverticulitis of colon with perforation Acute K57.20 - DVTRCLI OF LG INT W PERFORATION AND ABSCESS W/O BLEEDING Present on Admission: Yes Plan/Goal/Comment: The patient appears to be clinically improving. (2) Tobacco abuse Chronic Z72.0 - TOBACCO USE Present on Admission: Yes Plan/Goal/Comment: The patient has been counseled on tobacco cessation. Discharge Disposition: Home Discharge Condition: Improved Cognitive Discharge Status: Unimpaired Fuctional Discharge Status: Independent Physician Follow up/Referrals: Alex Palmer DO [Staff Physician] - One Week Home Medications/ New Prescriptions: Continue Levofloxacin [Levaquin] 750 mg PO DAILY #10 tab Metronidazole [Flagyl] 500 mg PO BID #28 tab Discontinued Atorvastatin Calcium [Lipitor] 10 mg PO HS Ranitidine HCl [Acid [employer]] 75 mg PO DAILY Oxycodone HCl/Acetaminophen [Percocet 5-325 mg Tablet] 1 - 2 each PO Q4-6H # 20 tablet Promethazine [Phenergan] 25 mg PO Q8H PRN #20 tab PRN Reason: Nausea/Vomiting Additional Instructions: Follow a liquid diet Diet at Discharge: Other (Full liquid diet until seen in the office by Dr. Palmer) Activity: No Restrictions Call Office For: Fever over 100.5, Other (See Details) (abdominal pain, fevers, chills or constipation.) Discontinue use of:: Alcohol, All Illegal Substances, All Types of Tobacco - DC Summary Notes Hospital Course Note:: Discharge summary on patient named FABRICE SCHMITT admitted to [facility] on 06/15/16 by Alex Palmer DO. The patient was diagnosed with acute sigmoid diverticulitis. He was admitted and intravenous antibiotics were started. The patient's white blood cell count decreased, his fever decreased and he had less abdominal pain. He had several bowel movements, tolerated a liquid diet and was able to ambulate in the [place]. He was stable for discharge on home oral antibiotics. Date of discharge is 06/18/16. Discharge condition: stable Final discharge diagnosis: acute sigmoid diverticulitis Wound Care Surgical Site: No May Shower Starting:: 06/17/16 Ability To Perform Care (if applicable): Yes - Physical Exam Vital Signs: Initial Vitals Temperature 101.5 F H 06/15/16 21:04 Pulse Rate 120 H 06/15/16 21:04 Respiratory Rate 20 06/15/16 21:04 Blood Pressure 152/71 06/15/16 21:04 Pulse Oxygen Saturation 94 06/15/16 21:04 Constitutional: Alert (Awake, Fully oriented. Normal and appropriate affect.Well appearing. Well nourished.), No apparent distress Oriented to: Time, Person, Place - HEENT Head: Normal (normocephalic, atraumatic.), Other (No cervical lymphadenopathy. No supraclavicular lymphadenopathy. Neck: No palpable mass, supple , trachea midline.) Eye: Normal (pupils equal, reactive to light, and round; EOMI, Sclera white) Oropharynx: Normal (Pharynx: Moist without exudate,Gums-no swelling, No oropharyngeal lesions or erythema, Mucous membranes are dry.) TMJ: Normal Nose: No Symptoms Reported (septum midline, Nares patent, without discharge or bleeding.) Respiratory: Normal - CTA (Clear to auscultation bilaterally. No wheezing, rales , rhonchi. Chest wall movements are symmetric. No use of accessory muscles to breathe.) Cardiovascular: Normal (RRR , Normal S1, S2. No murmurs, rubs, or gallops. PMI non-displaced. Carotids: no carotid bruits. No bradycardia or tachycardia. DP pulses 2+ bilaterally.) - GI Auscultation: Normal (normal active sounds) Palpation: Normal (Soft,non distended,nontender. No hepatosplenomegaly.) Tenderness: Non tender (No rebound or guarding). negative: Guarding, Rebound, Rigidity Galindo's Sign: Negative Rectal Exam: Deferred - Exam Deferred: Yes - Musculoskeletal Back: Normal (Non-Tender) Extremities: Normal (Normal tone, DP pulses 2+ bilaterally, No cyanosis or edema bilaterally, FROM bilaterally.) - Integumentary Skin: Normal (Clean, dry, and intact. No rashes. No lesions.) Lymphatics: Normal (No cervical lymphadenopathy. No supraclavicular lymphadenopathy.) - Neurologic Memory Impaired: Normal Motor Function: Normal (Motor 5/5 throughout.Normal tone, Pulses 2+ No cyanosis or edema, FROM) Cranial Nerve: Normal (CN II-XII intact sensation, strength 5/5) Cerebellar: Normal (Babinski: toes downgoing bilaterally. Intact Finger to nose. Sensory grossly intact to light touch. Intact rapid alternating movements bilaterally. No pronator drift.) Mood Description: Normal (Fully oriented. Normal and appropriate affect.) Perception: Normal (Normal and appropriate affect.)
== END 2016-06-18 15:35 | disposition home or self-care (01) | DRG 392 ==
LOC: ED 20:36 → MPS3 22:03
PROVIDERS: ADMIT Surgery; ATTEND Surgery
DX: K57.20 Diverticulitis of large intestine with perforation and abscess without bleeding (principal); F17.210 Nicotine dependence, cigarettes, uncomplicated; Z09 Encounter for follow-up examination after completed treatment for conditions other than malignant neoplasm; Z88.5 Allergy status to narcotic agent; Z79.899 Other long term (current) drug therapy
CPT/HCPCS: 36415; 74022; 74177; 80048; 80053; 81001; 83605; 85025; 96361; 96374; 96375; 99284; 99406; A9698; G0237; J1170; J1335; J2270; J2405; J2550; J3490; J7030